=== PATIENT | female | born 1970 | race Caucasian/White ===

== ENCOUNTER → 2017-05-17 | Outpatient (CLI) | payer BC ==
[~2017-05-17] MED LIST: NO HOME MEDICATIONS
== END ==
LOC: MC.RAD 11:00
DX: Z12.31 Encounter for screening mammogram for malignant neoplasm of breast (principal)

== ENCOUNTER → 2018-05-19 | Outpatient (CLI) | payer BC | LOC: MC.RAD 08:20 | DX: Z12.31 Encounter for screening mammogram for malignant neoplasm of breast (principal); Z98.82 Breast implant status; Z98.890 Other specified postprocedural states ==

== ENCOUNTER 2018-11-24 12:45 | Outpatient (RCR) | payer BC | END 2018-12-17 16:55 | disposition home or self-care (01) | LOC: WSC 12:45 | DX: S86.811D Strain of other muscle(s) and tendon(s) at lower leg level, right leg, subsequent encounter (principal) ==

== ENCOUNTER → 2019-06-30 | Outpatient (CLI) | payer BC | LOC: MC.RAD 09:15 | DX: Z12.31 Encounter for screening mammogram for malignant neoplasm of breast (principal); Z98.82 Breast implant status; Z98.890 Other specified postprocedural states ==

== ENCOUNTER → 2024-04-24 | Outpatient (CLI) | payer BC ==
[2005-04-17 07:00] VITALS: TEMP 98.3
== END ==
LOC: MC.RAD 12:56
DX: R92.0 Mammographic microcalcification found on diagnostic imaging of breast (principal); Z85.3 Personal history of malignant neoplasm of breast